=== PATIENT | male | born 1945 | race Caucasian/White ===

== ENCOUNTER 2017-04-18 14:26 | Inpatient (IN) | payer MEDICARE, BC ==
[~2017-04-18] VITALS: Ht 180.3 cm; Wt 120.2 kg
--- NOTE | ~2017-04-18 | EGD ---
EGD REPORT [facility] [address] [address] NAME: CYRUS HAMPTON : [birth year] STATUS : ADM Mary Anne PAT#: [id number] AGE: 71 ADM/REG DATE : 04/18/17 MR#: [id number] REPORT SERV DATE: 04/20/17 DICTATED BY: IHSAN THOMAS DATE: 04/20/17 REPORT STATUS : Draft [facility]ANS[facility]ED [facility]: [facility] DATE: 04/20/17 Endoscopy Center Patient Name: Cyrus Hampton Date of : 1945 Attending MD: IHSAN THOMAS MD Procedure Date No Time: 04/20/2017 Procedure: Upper GI endoscopy Indications: Melena Medicines: Monitored Anesthesia Care Complications: No immediate complications. Estimated blood loss: None. Procedure: After obtaining informed consent, the endoscope was passed under direct vision. Throughout the procedure, the patient's blood pressure, pulse, and oxygen saturations were monitored continuously. The GIF [id number] was introduced through the mouth, and advanced to the jejunum. The upper GI endoscopy was accomplished without difficulty. The patient tolerated the procedure well. Findings: The examined esophagus was normal. Evidence of a Alexandre-en-Y gastrojejunostomy was found. The gastrojejunal anastomosis was characterized by ulceration and an intact staple line. This was traversed easily. There was no active bleeding seen. The examined jejunum was normal. Impression: - Alexandre-en-Y gastrojejunostomy. The gastrojejunal anastomosis had ulceration and an intact staple line. - Normal examined jejunum. - No active bleeding. Recommendation: - Discharge patient to home (ambulatory). - Mechanical soft diet. - Use Protonix (pantoprazole) 40 mg PO BID for 8 weeks. - Resume Coumadin (warfarin) at prior dose in 5 days. Procedure Code(s): --- Professional --- 37867, Esophagogastroduodenoscopy, flexible, transoral; diagnostic, including collection of specimen(s) by brushing or washing, when performed (separate procedure) Diagnosis Code(s): --- Professional --- Z98.0, Intestinal bypass and anastomosis status K92.1, Melena EGD REPORT [place] [address] [place]. [address] NAME: CYRUS HAMPTON : [birth year] STATUS : ADM Mary Anne PAT#: [id number] AGE: 71 ADM/REG DATE : 04/18/17 MR#: [id number] REPORT SERV DATE: 04/20/17 DICTATED BY: IHSAN THOMAS DATE: 04/20/17 REPORT STATUS : Draft TRANSCRIBED BY: [employer] DATE: 04/20/17 CPT copyright 2013 [employer]. All rights reserved. The codes documented in this report are preliminary and upon ash kier boiler review may be revised to meet current compliance requirements. Ihsan Thomas MD IHSAN THOMAS MD 04/20/2017 9:36 AM This report has been signed electronically. Number of Addenda: 0 Note Initiated On: 04/20/2017 9:[address] [place], [place] [address]j[place] [address]
--- NOTE | ~2017-04-18 | DS ---
Discharge Summary [facility] [address] [facility] [place]. [address] NAME: BRYAN HAMPTON : [birth year] STATUS : DIS IN PAT#: [id number] AGE: 71 ADM/REG DATE : 04/19/17 MR#: [id number] REPORT SERV DATE: 04/22/17 DICTATED BY: WEST PHELPS DATE: 04/21/17 REPORT STATUS : Draft TRANSCRIBED BY: MODL DATE: 04/21/17 ADMISSION DATE: 04/19/2017 DISCHARGE DATE: 04/21/2017 REASON FOR ADMISSION: This is a 71-year-old male who had come in with chief complaint of black tarry stools per rectum, fever, and chills. The patient had recently had gastric bypass surgery by Dr. Huerta two weeks prior to admission at [place]. DISCHARGE DIAGNOSES: 1. Gastric bypass anastomosis ulceration. 2. Black stools, heme-positive, GI bleed secondary to ulceration. 3. Acute blood loss anemia secondary to GI bleed. 4. Recent gastric bypass done by Dr. Huerta. 5. History of cerebrovascular accident on Coumadin. 6. Status post fever and leukocytosis. HOSPITAL COURSE: On admission, the patient was started on IV Rocephin because of fever and leukocytosis; however, no infection was revealed either through chest x-ray or urinalysis and the patient was having no diarrhea. Also, white blood cell count never truly elevated, it was 10.9 on admission, 9.9 and 7.3 on followup and his highest temperature ran was 100.9 on admission and never ran another fever. So, IV Rocephin was stopped. An EGD was planned per Dr. Collazo and he would perform the EGD on the . This would show a Alexandre-en-Y gastrojejunostomy. The gastrojejunal anastomosis had ulceration and intact staple line. Normal examined jejunum. No active bleeding and with recommendations for mechanical soft diet, PPI, Protonix 40 mg p.o. b.i.d. x8 weeks and recommendations to wait at least 5 more days before resuming Coumadin. The patient's surgeon, Dr. Huerta, stopped by and saw the patient and after discussion about the GI bleed and being on Coumadin, the decision was made to hold off on resuming Coumadin until Dr. Huerta and the patient's primary care, Dr. Simons, had a chance to discuss a plan on the necessity of Coumadin and when to restart it. The patient did have acute blood loss anemia related to this GI bleed while here at the hospital. His hemoglobin would drop from 9.3 down to 7.3 on the 12th and he would receive 1 unit of packed red cells. His hemoglobin would come up to 8.6 and remain there stable and GI cleared him for discharge. DISCHARGE CONDITION: Stable. DISCHARGE MEDICATIONS: 1. Simvastatin 20 mg p.o. daily. 2. Coumadin to be held until directed by Dr. Huerta of primary care, Dr. Simons to resume. 3. Metoprolol 12.5 mg p.o. b.i.d. 4. Vitamin C 600 mg p.o. daily. 5. Multivitamin one tablet daily. 6. Os-Giovani vitamin D 500 mg p.o. daily. 7. Protonix 40 mg p.o. b.i.d. x8 weeks. 8. Tylenol p.r.n. 9. Hydrocodone 7.5/325 p.r.n. Discharge Summary [address] [address] NAME: BRYAN HAMPTON : [birth year] STATUS : DIS IN PAT#: [id number] AGE: 71 ADM/REG DATE : 04/19/17 MR#: [id number] REPORT SERV DATE: 04/22/17 DICTATED BY: WEST PHELPS DATE: 04/21/17 REPORT STATUS : Draft TRANSCRIBED BY: MODL DATE: 04/21/17 10.Hyoscyamine sulfate 0.125 mg p.o. sublingual t.i.d. p.r.n. DISCHARGE PLAN: The patient discharged home. Follow up with primary care, Dr. Simons, in the next one to two weeks and follow up with Dr. Huerta in the next one to two weeks also. Total time for discharge greater than 30 minutes. This dictation was done in collaboration with Dr. West Phelps. LUANNE/DAYAL Oh Dave APN West Phelps M.D. / [id number] CC: Nelsy Troncoso M.D. Christopher K Sanborn, M.D. William M. Cooney, MD
--- NOTE | ~2017-04-18 | CN ---
Consultation Report [facility] [address] [place]. [address] NAME: BRYAN HAMPTON : [birth year] STATUS : ADM Mary Anne PAT#: [id number] AGE: 71 ADM/REG DATE : 04/18/17 MR#: [id number] REPORT SERV DATE: 04/19/17 DICTATED BY: SHAYY BENITEZ DATE: 04/19/17 REPORT STATUS : Draft TRANSCRIBED BY: MODL DATE: 04/19/17 GI CONSULTATION DATE OF CONSULTATION: 04/19/2017 REASON FOR CONSULTATION: Evaluation and management of Hemoccult-positive stools and reported melena. HISTORY OF PRESENT ILLNESS: Mr. Hampton is a 71-year-old male patient, who has been seen by Dr. Aldo Flowers in the distant past, who presented to [facility] on 04/18/2017 as he had just recently been seen that day by his primary care physician Dr. Simons, and was directed to the emergency room for his complaints. He states that he has had a recent gastric bypass done with Dr. Jonas Huerta at [facility] two weeks ago. He has a history of CVA and is on chronic Coumadin therapy. After his gastric bypass, he was on Lovenox. He started his Coumadin back this past Tuesday on 04/16/2017. He states that since his gastric bypass, he has only had three bowel movements that were all black in color. He states that he has been having issues with his blood pressure where it will be low and will return to normal, but then he gets tachycardic, and in general feels bad. He states that yesterday when he was at Dr. Simons' office, he had tremors and what sounds like rigors. He had a temperature at [facility] of 100.9, with a white blood cell count of 10.9 on admission. Chest x-ray was normal. His stool was checked in the emergency room, and he was found to be Hemoccult positive. His H and H were 9.3 and 28.6, which has since with hydration dipped down to 8 and 24. His hemoglobin noted to be in May 2016 was 12. I have discussed with Dr. Collazo. We will plan on pursuing upper endoscopy on 04/20/2017. Risks, benefits, alternatives, and complications were detailed for him to include, but not limited to risk of bleeding, perforation, infection, reaction to medication, as well as cardiac and pulmonary side effects. He is agreeable to proceed. PAST MEDICAL HISTORY: Positive for obesity with recent gastric bypass by Dr. Huerta at [place], CVA on chronic Coumadin therapy, chronic pain syndrome, hypertension, GERD, and elevated cholesterol. FAMILY HISTORY: Noncontributory from a GI standpoint. SOCIAL HISTORY: He is . He lives independently. He denies any alcohol, tobacco, or illicits. REVIEW OF SYSTEMS: A 10-point review of systems has been obtained with pertinent positives being addressed in the history of present illness. PHYSICAL EXAMINATION: VITAL SIGNS: Temperature 97.9, pulse 70, respirations 20, and blood pressure 113/65. NEUROLOGIC: Reveals an alert male, resting in bed with no focal deficits. Consultation Report [address] [address] NAME: BRYAN HAMPTON : [birth year] STATUS : ADM Mary Anne PAT#: [id number] AGE: 71 ADM/REG DATE : 04/18/17 MR#: [id number] REPORT SERV DATE: 04/19/17 DICTATED BY: SHAYY BENITEZ DATE: 04/19/17 REPORT STATUS : Draft TRANSCRIBED BY: JULITO DATE: 04/19/17 GENERAL: Cooperative. In no apparent distress. Awake, alert, and oriented x3. HEAD, EARS, EYES, NOSE, AND THROAT: Anicteric. Pupils are equal, round, and reactive to light accommodation. Normocephalic and atraumatic. NECK: Supple with no JVD. No palpable nodes. LUNGS: Clear anteriorly with normal respiratory effort exhibited. CARDIOVASCULAR: Regular rate and rhythm. S1 and S2. ABDOMEN: Soft, nontender, and nondistended. Active bowel sounds in all four quadrants. EXTREMITIES: No edema. Normal distal pulses. SKIN: Warm, dry, and intact. PERTINENT LABORATORY DATA: Sodium 140, potassium 3.9, BUN is 21, and creatinine 1.02. White blood cell count is 9.9, hemoglobin 8, hematocrit 24.4, and platelet count 212. INR of 1.2. ASSESSMENT: 1. Hemoccult-positive stools with reported melena. 2. Anemia of acute blood loss. 3. Status post recent gastric bypass two weeks ago under the direction of Dr. Huerta. 4. History of cerebrovascular accident, on Coumadin. 5. Fever with leukocytosis. PLAN: 1. Continue Protonix drip. 2. Monitor H and H and transfuse if needed. 3. The patient will undergo upper endoscopy with Dr. Collazo on 04/20/2017. 4. We will let Dr. Huerta know of the patient's admission. 5. Clear liquid diet today with him being n.p.o. after midnight. 6. Morning labs. We will follow. AARON/JULITO BARBY So / [id number] CC: Nelsy Troncoso M.D.
--- NOTE | ~2017-04-18 | HP ---
History And Physical [facility] [address] [place]. [address] NAME: BRYAN HAMPTON : [birth year] STATUS : ADM Mary Anne PAT#: [id number] AGE: 71 ADM/REG DATE : 04/18/17 MR#: [id number] REPORT SERV DATE: 04/19/17 DICTATED BY: JR CASTELLANOS DATE: 04/18/17 REPORT STATUS : Draft TRANSCRIBED BY: MODL DATE: 04/18/17 DATE OF ADMISSION: 04/18/2017 CHIEF COMPLAINT: Passing black tarry stools per rectum, fever, and chills. HISTORY OF PRESENT ILLNESS: This is a 71-year-old male who recently had a gastric bypass surgery done at [place] by Dr. Carlos Huerta, history of CVA, and chronic pain, who presents to the Emergency Room at [facility], after Dr. Zeferino Simons, his primary care physician, had told him to go to the ER. History is obtained from the patient and reviewing data available on the [employer] system. According to Mr. Hampton, he had been doing quite well since his recent gastric bypass surgery, but since then, he has had black tarry stools, which is hard as well. Today, he went to see his primary care physician, Dr. Zeferino Simons, who asked him to go to the emergency room right away to be evaluated for his black tarry stools. In the emergency room, his stool Hemoccult was positive and he had symptomatic anemia probably secondary to the blood loss and Hospitalist Service was asked to admit him for further evaluation and treatment. At the time of my evaluation, he denied any chest pain or palpitations. He had no orthopnea. He had no cough, hemoptysis, night sweats, or weight loss. He has not had any recent falls or loss of consciousness. No history of recent fevers, chills, or nausea. He did not have any nausea or vomiting. No history of recent hematemesis or hematuria. No other history of recent travel or exposures other than those mentioned above. PAST MEDICAL HISTORY: Significant for recent gastric bypass surgery done by Dr. Carlos Huerta at [place]; history of CVA, on chronic anticoagulation; and history of chronic pain as well. SOCIAL HISTORY: He does not smoke, drink, or use recreational drugs. FAMILY HISTORY: Noncontributory. MEDICATIONS: His medications at home were reviewed by me in the chart today and reordered by me. REVIEW OF SYSTEMS: As in history of present illness. All other systems were reviewed in detail and are quite unremarkable. PHYSICAL EXAMINATION: GENERAL: This is a pleasant 71-year-old, not in any acute distress. HEENT: His head is atraumatic, normocephalic. He is alert, awake, and oriented to time, place, and person. Pupils are equal and reacting to light and accommodating. External ocular muscles are intact. Membranes are moist and pink. Sclerae are nonicteric. History And Physical [address] [address] NAME: BRYAN HAMPTON : [birth year] STATUS : ADM Mary Anne PAT#: [id number] AGE: 71 ADM/REG DATE : 04/18/17 MR#: [id number] REPORT SERV DATE: 04/19/17 DICTATED BY: JR CASTELLANOS DATE: 04/18/17 REPORT STATUS : Draft TRANSCRIBED BY: JULITO DATE: 04/18/17 NECK: Supple with no jugular venous distention, lymphadenopathy, or thyromegaly. LUNGS: Clear to auscultation with no wheezes, rubs, or crackles. HEART: Heart sounds are regular with no murmurs, rubs, or gallops. ABDOMEN: Soft and nontender. Bowel sounds are present. EXTREMITIES: Showed no cyanosis, clubbing, or edema. NEURO: Grossly intact. No focal sensory or motor deficits. Higher functions appeared intact. Gait was not examined. VITAL SIGNS: Temperature is 100.9, pulse 117, respirations 12 a minute, blood pressure is 135/74, and oxygen saturations are 90% breathing 2 L of oxygen via nasal cannula. LABORATORY DATA: Reviewed on the Orth[employer] system showed a normal CMP with a blood glucose of 120, AST and ALT and alkaline phosphatase was within normal limits. CBC: 10.9, hemoglobin was 9.3, hematocrit 28.6, and platelet count was 256,000. His hemoglobin has dropped from 12 on 05/24/2016 to what it is today. His hematocrit was 35.2 in 2016. His prothrombin time was 15 and INR was 1.2 today. Urinalysis was grossly unremarkable. Films of the chest x-ray were reviewed by me on the PACS today and interpreted by me. Per my interpretation, there is prior sternotomy with no cardiomegaly. Lung borges were clear with no infiltrates or pleural effusions. EKG was not done in the emergency room. IMPRESSION: 1. Acute gastrointestinal bleeding. 2. Recent gastric bypass surgery. 3. Symptomatic anemia secondary to blood loss. 4. History of cerebrovascular accident, on anticoagulation. 5. Chronic pain. PLAN: We will admit Mr. Hampton to the Hospitalist Service with telemetry for a 24-hour observation. We will follow his hemoglobin and hematocrit levels and transfuse when indicated. Meanwhile, we will start him on intravenous Protonix infusion and consult Dr. Aldo Flowers, his chemical milling processor. We will start him on IV fluids for volume resuscitation and continue other home medications and treatments. We will place him on SCDs for DVT prophylaxis while here. I have discussed the above plans with the patient and his questions were answered. He is agreeable to the above recommendations. Hospitalist Service will be following him during his stay. /JULITO Jr Castellanos M.D. / [id number] CC: Kurt Mckay M.D. History And Physical [address] [address] NAME: BRYAN HAMPTON : [birth year] STATUS : ADM MaryA nne PAT#: [id number] AGE: 71 ADM/REG DATE : 04/18/17 MR#: [id number] REPORT SERV DATE: 04/19/17 DICTATED BY: JR CASTELLANOS DATE: 04/18/17 REPORT STATUS : Draft TRANSCRIBED BY: JULITO DATE: 04/18/17 Zeferino Simons M.D.
[~2017-04-18 14:26] MED LIST: ASAB PO; ASAEC PO; C5 PO; CALTRAT600 PO; CARDU4 PO; DIABET2.5 PO; GLUCOPHAGE1000 MG PO; GLUCOTROL5 PO; HYZAAR 100/25 T1 TAB PO; JANUVIA50 PO; KDUR20 PO; L40 PO; LOP25 PO; LORTAB10 PO; MULTIVITAMI1 PO; NITROSTAT0.4 MG SL; PAX20 PO; PRIN5 PO; SENTAB PO; V120 PO; VITC500 PO; ZESTORETIC1 TA1 PO; ZOCOR20 PO; ZOCOR40 PO
[2017-04-18 14:59] LABS: BASOPHILS 0.1 %; BASOPHILS ABSOLUTE 0.01 10/3/uL (0.0-0.16); EOSINOPHILS 4.1 %; EOSINOPHILS ABSOLUTE 0.45 10/3/uL (0.0-0.53); ER CBC TAT 0 Hrs 05 Mins; HEMATOCRIT 28.6 % (40.0-51.0); HEMOGLOBIN 9.3 g/dL (13.6-17.8); IMMATURE GRANULOCYTES 0.5 %; IMMATURE GRANULOCYTES ABSOLUTE 0.05 10/3/uL (0.0-0.11); LYMPHOCYTES 6.6 %; LYMPHOCYTES ABSOLUTE 0.72 10/3/uL (0.67-4.30); MANUAL DIFF NO %; MEAN CORPUS HGB CONC 32.5 g/dL (32.0-36.0); MEAN CORPUSCULAR HEMOGLOB 30.6 pg (26.0-34.0); MEAN CORPUSCULAR VOLUME 94.1 fL (80-100); MEAN PLATELET VOLUME 8.2 fL (9.2-13.0); MONOCYTES 6.6 %; MONOCYTES ABSOLUTE 0.72 10/3/uL (0.21-1.20); NEUTROPHILS 82.1 %; NEUTROPHILS ABSOLUTE 8.93 10/3/uL (2.02-8.40); PLATELET COUNT 259 10/3/uL (150-400); RBC DISTRIBUTION WIDTH 14.6 % (12.0-16.0); RED CELL COUNT 3.04 10/6/uL (4.7-6.1); WHITE BLOOD CELLS 10.9 10/3/uL (4.5-10.5)
[2017-04-18 15:15] LABS: A/G RATIO 0.9 (0.7-1.9); ALBUMIN 3.8 G/DL (3.5-5.0); ALKALINE PHOSPHATASE 64 U/L (45-117); BUN (BLOOD UREA NITROGEN) 20 MG/DL (6-23); CALCIUM, SERUM 9.4 MG/DL (8.5-10.4); CHLORIDE, SERUM 104 MMOL/L (96-112); CO2 (CARBON DIOXIDE) 27 MMOL/L (24-34); CREATININE 1.17 MG/DL (0.70-1.30); GFR AFRICAN AMERICAN 73 ML/MIN (>=60); GFR NON AFRICAN AMERICAN 63 ML/MIN (>=60); GLUCOSE, SERUM 120 MG/DL (60-99); POTASSIUM, SERUM 4.6 MMOL/L (3.5-5.3); SGOT(AST) 13 U/L (5-40); SGPT(ALT) 23 U/L (5-65); SODIUM, SERUM 140 MMOL/L (135-148); TOTAL BILIRUBIN 0.7 MG/DL (0-1.2)
[2017-04-18 15:16] LABS: ASCORBIC ACID (UR NOT ORDER) 40 (NEG); BILIRUBIN, URINE NEGATIVE (NEG); ER URINALYSIS TAT 0 Hrs 11 Mins; KETONE, URINE NEGATIVE (NEG); LEUKOCYTE ESTERASE(NOT OR NEG (NEG); NITRITE (URINE) NEG (NEG); WBC (NOT ORDERED) (RFLEX) 1 (0-5)
[2017-04-18 15:16] LABS: GLOBULIN 4.2 G/DL (2.5-4.1)
[2017-04-18 19:25] LABS: INTERNATIONAL NORMAL RATI 1.2 UNITS (-); PARTIAL THROMBO TIME 37.2 SEC (22.5-37.2)
[2017-04-18] MEDS ORDERED: ACET500CAP PO (19:31)
[2017-04-18] MEDS ORDERED: SYMAX-SL0.125 MG SL (19:32)
[2017-04-18] MEDS ORDERED: HYCET 7.5 MG-3473 ML PO (19:32)
[2017-04-18] MEDS ORDERED: PRILO PO (19:32)
[2017-04-18] MEDS ORDERED: ZOCOR20 PO (19:33)
[2017-04-18] MEDS ORDERED: COUMADIN4 MG PO (19:34)
[2017-04-18] MEDS ORDERED: C2 PO (19:35)
[2017-04-18] MEDS ORDERED: LOP25 PO (19:35)
[2017-04-18] MEDS ORDERED: OS500+D PO (19:36)
[2017-04-18] MEDS ORDERED: CENTRUM PO (19:36)
[2017-04-18] MEDS ORDERED: VITAMIN C100 MG PO (19:36)
[2017-04-18 22:01] LABS: LACTATE 0.9 MMOL/L (0.3-2.4)
[2017-04-18 22:25] LABS: PROCALCITONIN 0.07 ng/mL (<0.5)
[2017-04-19 06:20] LABS: BASOPHILS 0.2 %; BASOPHILS ABSOLUTE 0.02 10/3/uL (0.0-0.16); EOSINOPHILS 2.6 %; EOSINOPHILS ABSOLUTE 0.26 10/3/uL (0.0-0.53); HEMATOCRIT 24.4 % (40.0-51.0); IMMATURE GRANULOCYTES 0.2 %; IMMATURE GRANULOCYTES ABSOLUTE 0.02 10/3/uL (0.0-0.11); LYMPHOCYTES 9.1 %; MANUAL DIFF NO %; MEAN CORPUS HGB CONC 32.8 g/dL (32.0-36.0); MEAN CORPUSCULAR HEMOGLOB 30.8 pg (26.0-34.0); MEAN CORPUSCULAR VOLUME 93.8 fL (80-100); MEAN PLATELET VOLUME 8.6 fL (9.2-13.0); MONOCYTES 7.5 %; MONOCYTES ABSOLUTE 0.74 10/3/uL (0.21-1.20); NEUTROPHILS 80.4 %; NEUTROPHILS ABSOLUTE 7.99 10/3/uL (2.02-8.40); PLATELET COUNT 212 10/3/uL (150-400); RBC DISTRIBUTION WIDTH 14.5 % (12.0-16.0); WHITE BLOOD CELLS 9.9 10/3/uL (4.5-10.5)
[2017-04-19 06:28] LABS: BUN (BLOOD UREA NITROGEN) 21 MG/DL (6-23); CALCIUM, SERUM 8.6 MG/DL (8.5-10.4); CHLORIDE, SERUM 106 MMOL/L (96-112); CO2 (CARBON DIOXIDE) 25 MMOL/L (24-34); CREATININE 1.02 MG/DL (0.70-1.30); GFR AFRICAN AMERICAN 87 ML/MIN (>=60); GFR NON AFRICAN AMERICAN 75 ML/MIN (>=60); GLUCOSE, SERUM 103 MG/DL (60-99); PHOSPHORUS, SERUM 3.5 MG/DL (2.5-4.5); POTASSIUM, SERUM 3.9 MMOL/L (3.5-5.3); SODIUM, SERUM 140 MMOL/L (135-148)
[2017-04-19 10:40] LABS: HEMATOCRIT 23.4 % (40.0-51.0); HEMOGLOBIN 7.7 g/dL (13.6-17.8)
[2017-04-19 16:36] LABS: HEMATOCRIT 24.6 % (40.0-51.0); HEMOGLOBIN 8.2 g/dL (13.6-17.8)
[2017-04-19 22:48] LABS: HEMOGLOBIN 7.3 g/dL (13.6-17.8)
[2017-04-20 07:09] LABS: BASOPHILS 0.3 %; BASOPHILS ABSOLUTE 0.02 10/3/uL (0.0-0.16); EOSINOPHILS 5.9 %; EOSINOPHILS ABSOLUTE 0.43 10/3/uL (0.0-0.53); HEMATOCRIT 26.2 % (40.0-51.0); HEMOGLOBIN 8.6 g/dL (13.6-17.8); IMMATURE GRANULOCYTES 0.3 %; IMMATURE GRANULOCYTES ABSOLUTE 0.02 10/3/uL (0.0-0.11); LYMPHOCYTES 10.9 %; LYMPHOCYTES ABSOLUTE 0.79 10/3/uL (0.67-4.30); MANUAL DIFF NO %; MEAN CORPUS HGB CONC 32.8 g/dL (32.0-36.0); MEAN CORPUSCULAR HEMOGLOB 30.6 pg (26.0-34.0); MEAN CORPUSCULAR VOLUME 93.2 fL (80-100); MEAN PLATELET VOLUME 8.4 fL (9.2-13.0); MONOCYTES 7.9 %; MONOCYTES ABSOLUTE 0.57 10/3/uL (0.21-1.20); NEUTROPHILS 74.7 %; NEUTROPHILS ABSOLUTE 5.43 10/3/uL (2.02-8.40); PLATELET COUNT 234 10/3/uL (150-400); RBC DISTRIBUTION WIDTH 14.9 % (12.0-16.0); RED CELL COUNT 2.81 10/6/uL (4.7-6.1); WHITE BLOOD CELLS 7.3 10/3/uL (4.5-10.5)
[2017-04-20 07:14] LABS: INTERNATIONAL NORMAL RATI 1.3 UNITS (-); PROTIME (NOT ORD) 16.2 SEC (12.0-14.5)
[2017-04-20 07:20] LABS: BUN (BLOOD UREA NITROGEN) 14 MG/DL (6-23); CALCIUM, SERUM 8.7 MG/DL (8.5-10.4); CHLORIDE, SERUM 109 MMOL/L (96-112); CO2 (CARBON DIOXIDE) 27 MMOL/L (24-34); CREATININE 1.03 MG/DL (0.70-1.30); GFR AFRICAN AMERICAN 86 ML/MIN (>=60); GFR NON AFRICAN AMERICAN 74 ML/MIN (>=60); GLUCOSE, SERUM 103 MG/DL (60-99); POTASSIUM, SERUM 4.2 MMOL/L (3.5-5.3); SODIUM, SERUM 143 MMOL/L (135-148)
[2017-04-20 10:43] LABS: HEMATOCRIT 25.6 % (40.0-51.0); HEMOGLOBIN 8.3 g/dL (13.6-17.8)
[2017-04-20 18:47] LABS: HEMATOCRIT 26.4 % (40.0-51.0); HEMOGLOBIN 8.6 g/dL (13.6-17.8)
[2017-04-20 22:37] LABS: HEMATOCRIT 24.8 % (40.0-51.0)
[2017-04-21 06:22] LABS: HEMATOCRIT 26.7 % (40.0-51.0); HEMOGLOBIN 8.6 g/dL (13.6-17.8)
[2017-04-21] MEDS ORDERED: PROTONIX PO (09:38)
== END 2017-04-21 13:06 | disposition home or self-care (01) | DRG 378 ==
LOC: ER 14:26 → 7NO 21:07
PROVIDERS: Emergency Medicine; Hospitalist; Internal Medicine Gastroenterology; Internal Medicine Pulmonary Disease; Nurse Practitioner Family; Nurse Practitioner Gerontology
PROC: 0DJ08ZZ Inspection of Upper Intestinal Tract, Via Natural or Artificial Opening Endoscopic (ICD-10-PCS; 2017-04-20)
PROC: 30233N1 Transfusion of Nonautologous Red Blood Cells into Peripheral Vein, Percutaneous Approach (ICD-10-PCS; principal; 2017-04-20 07:00)
DX: K28.4 Chronic or unspecified gastrojejunal ulcer with hemorrhage (principal); D62 Acute posthemorrhagic anemia; D72.829 Elevated white blood cell count, unspecified; G89.29 Other chronic pain; Z86.73 Personal history of transient ischemic attack (TIA), and cerebral infarction without residual deficits; Z79.01 Long term (current) use of anticoagulants; Z98.84 Bariatric surgery status; Z98.0 Intestinal bypass and anastomosis status
CPT/HCPCS: 36415; 71020; 80048; 80053; 81001; 83605; 83735; 84100; 84145; 85014; 85018; 85025; 85610; 85730; 86850; 86900; 86901; 86920; 87040; 96374; 96375; 99284; A9270-GY; C9113; P9016